=== PATIENT | female | born 1930 | race Caucasian/White ===

== ENCOUNTER 2018-02-02 18:39 | Emergency (ER) | payer MEDICARE ==
[2018-02-02 19:09] VITALS: BP 174/85; PULSE 92; RESP 20; TEMP 98.9
--- NOTE | 2018-02-02 20:25 | ED ---
General Adult HPI - General Chief complaint: Skin/Abscess/Foreign Body Stated complaint: rash Time Seen by Provider: 02/02/18 19:36 Source: patient, family, RN notes reviewed Mode of arrival: ambulatory Limitations: no limitations - History of Present Illness Initial comments: 87-year-old female since to the emergency department for a chief complaint of rash 2 days. Patient states the rash started on her right forearm and has continued to spread up her right forearm and on her left forearm. Patient admits to pulling weeds a few days ago and states it may be related to that. Patient denies changing any detergents. Patient states it is irritating and itching. She states she did try a topical antihistamine but it has not helped. She also has a topical steroid at home that she has used. Patient denies fevers or chills at home. Patient denies any drainage from the wounds.Patient has no other complaints at this time including shortness of breath, chest pain, abdominal pain, nausea or vomiting, headache, or visual changes. - Related Data Home Medications Medication Instructions Recorded Confirmed Aspirin EC [Ecotrin Low Dose] 162 mg PO DAILY 02/02/18 02/02/18 Previous Rx's Medication Instructions Recorded diphenhydrAMINE HCL [Benadryl] 25 mg PO QID PRN #20 tab 02/02/18 predniSONE 40 mg PO DAILY 5 Days tab 02/02/18 Allergies Allergy/AdvReac Type Severity Reaction Status Date / Time simvastatin Allergy Rash/Hives Verified 02/02/18 19:44 potassium chloride AdvReac Unknown Verified 02/02/18 19:44 Review of Systems ROS Statement: Those systems with pertinent positive or pertinent negative responses have been documented in the HPI. ROS Other: All systems not noted in ROS Statement are negative. Past Medical History Past Medical History: No Reported History History of Any Multi-Drug Resistant Organisms: None Reported Past Surgical History: Tonsillectomy Additional Past Surgical History / Comment(s): betty 1988 Past Psychological History: No Psychological Hx Reported Smoking Status: Never smoker Past Alcohol Use History: None Reported Past Drug Use History: None Reported General Exam Limitations: no limitations General appearance: alert, in no apparent distress Head exam: Present: atraumatic, normocephalic, normal inspection Eye exam: Present: normal appearance ENT exam: Present: normal exam, mucous membranes moist Neck exam: Present: normal inspection, full ROM. Absent: tenderness, meningismus, lymphadenopathy Respiratory exam: Present: normal lung sounds bilaterally. Absent: respiratory distress, wheezes, rales, rhonchi, stridor Cardiovascular Exam: Present: regular rate, normal rhythm, normal heart sounds. Absent: systolic murmur, diastolic murmur, rubs, gallop, clicks Skin exam: Present: rash (Patient has erythematous pruritic raised papular lesions on the inner forearms bilaterally. It appears as a contact dermatitis. No cellulitic changes or abscess noted. No signs of infection.) Course Vital Signs 02/02/18 19:05 Temperature 98.9 F Pulse Rate 92 Respiratory 20 Rate Blood Pressure 174/85 O2 Sat by Pulse 97 Oximetry Medical Decision Making - Medical Decision Making 87-year-old female presents to the emergency department for a chief of rash 2 days. Rash is noted on bilateral forearms. Patient was pulling weeds a few days ago and likely has a contact dermatitis. The rash is erythematous papular and pruritic. Patient will be treated with Benadryl as well as a oral steroid. She will continue to apply the topical steroid. She will follow up with dermatology in 1-2 days. She will return to the emergency Department if she has any worsening symptoms or fevers or chills. Disposition Clinical Impression: Contact dermatitis Disposition: HOME SELF-CARE Instructions: Contact Dermatitis (ED) Additional Instructions: Please take medications as directed. Continue to apply your topical steroid. Follow-up with dermatology in 1-2 days. Return to the emergency department if you have any worsening symptoms. Prescriptions: diphenhydrAMINE HCL [Benadryl] 25 mg PO QID PRN #20 tab PRN Reason: Rash predniSONE 40 mg PO DAILY 5 Days tab Is patient prescribed a controlled substance at d/c from ED?: No Referrals: Yousif Rizo MD [STAFF PHYSICIAN] - 1-2 days Time of Disposition: 20:22
== END 2018-02-02 20:40 | disposition home or self-care (01) ==
LOC: EC 18:39
DX: L25.9 Unspecified contact dermatitis, unspecified cause (principal); Z79.82 Long term (current) use of aspirin; Z88.8 Allergy status to other drugs, medicaments and biological substances
CPT/HCPCS: 99282

== ENCOUNTER 2019-07-24 11:27 | Emergency (ER) | payer MEDICARE ==
[2019-07-24 11:38] VITALS: TEMP 97.3
--- NOTE | 2019-07-24 12:24 | ED ---
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 Patient comes in today because since Monday night her blood pressures been elevated. Patient states she's also had intermittent right frontal headache currently the headache has just recently subsided. Patient states she has no chest pain or pressure. Patient just feels as though her heart is pounding a little harder. Patient denies any shortness of breath or difficulty breathing. Patient denies any abdominal pain patient's nausea vomiting diarrhea. Patient's any back pain. Patient denies any swelling to the legs or any calf tenderness. - Related Data Home Medications Medication Instructions Recorded Confirmed Aspirin EC [Ecotrin Low Dose] 162 mg PO DAILY 02/02/18 02/02/18 Previous Rx's Medication Instructions Recorded diphenhydrAMINE HCL [Benadryl] 25 mg PO QID PRN #20 tab 02/02/18 predniSONE 40 mg PO DAILY 5 Days tab 02/02/18 amLODIPine [Norvasc] 5 mg PO DAILY #10 tab 07/24/19 Allergies Allergy/AdvReac Type Severity Reaction Status Date / Time simvastatin Allergy Rash/Hives Verified 02/02/18 19:44 potassium chloride AdvReac Unknown Verified 02/02/18 19:44 Review of Systems ROS Statement: Those systems with pertinent positive or pertinent negative responses have been documented in the HPI. ROS Other: All systems not noted in ROS Statement are negative. Past Medical History Past Medical History: No Reported History Additional Past Medical History / Comment(s): subarachnoid hemmorhage, aneurism History of Any Multi-Drug Resistant Organisms: None Reported Past Surgical History: Tonsillectomy Additional Past Surgical History / Comment(s): anuerysm 1989 Past Psychological History: No Psychological Hx Reported Smoking Status: Never smoker Past Alcohol Use History: None Reported Past Drug Use History: None Reported General Exam - General Exam Comments Initial Comments: GENERAL: Patient is well-developed and well-nourished. Patient is nontoxic and well-hydrated and is in no acute distress. ENT: Neck is soft and supple. No significant lymphadenopathy is noted. Oropharynx is clear. Moist mucous membranes. Neck has full range of motion without eliciting any pain. There is no thyroid enlargement and no masses were felt. EYES: The sclera were anicteric and conjunctiva were pink and moist. Extraocular movements were intact and pupils were equal round and reactive to light. Eyelids were unremarkable. PULMONARY: Unlabored respirations. Good breath sounds bilaterally. No audible rales rhonchi or wheezing was noted. CARDIOVASCULAR: There is a regular rate and rhythm without any murmurs gallops or rubs. Femoral pulses are equal bilaterally ABDOMEN: Soft and nontender with normal bowel sounds. No palpable organomegaly was noted. There is no palpable pulsatile mass. SKIN: Skin is clear with no lesions or rashes and otherwise unremarkable. NEUROLOGIC: Patient is alert and oriented x3. Cranial nerves II through XII are grossly intact. Motor and sensory are also intact. Normal speech, volume and content. Symmetrical smile. Cerebellar exam grossly intact. MUSCULOSKELETAL: Normal extremities with adequate strength and full range of motion. No lower extremity swelling or edema. No calf tenderness. LYMPHATICS: No significant lymphadenopathy is noted PSYCHIATRIC: Normal psychiatric evaluation. Normal interpersonal interactions appears functionally intact in deals appropriately with others. No signs of depression. No signs of anxiety. No delusions. No hallucinations. Limitations: no limitations Course Vital Signs 07/24/19 07/24/19 07/24/19 11:31 12:13 12:16 Temperature 97.3 F L Pulse Rate 91 79 Respiratory 19 18 Rate Blood Pressure 174/80 182/85 163/80 O2 Sat by Pulse 98 97 Oximetry 07/24/19 13:42 Temperature Pulse Rate 88 Respiratory 16 Rate Blood Pressure 137/92 O2 Sat by Pulse 98 Oximetry Medical Decision Making - Medical Decision Making Chest x-ray showed no acute abnormality. CT of the brain shows no acute abnormality. Patient received 5 mg of hydralazine emergency department. Patient will be sent home with in antihypertensive and follow up with Dr. Flores - Lab Data Result diagrams: 07/24/19 12:10 07/24/19 12:10 Lab Results 07/24/19 07/24/19 07/24/19 Range/Units 12:10 12:10 12:10 WBC 5.8 (3.8-10.6) k/uL RBC 4.76 (3.80-5.40) m/uL Hgb 11.6 (11.4-16.0) gm/dL Hct 38.5 (34.0-46.0) % MCV 80.9 (80.0-100.0) fL MCH 24.4 L (25.0-35.0) pg MCHC 30.2 L (31.0-37.0) g/dL RDW 17.4 H (11.5-15.5) % Plt Count 380 (150-450) k/uL Neutrophils % 62 % Lymphocytes % 23 % Monocytes % 7 % Eosinophils % 4 % Basophils % 1 % Neutrophils # 3.6 (1.3-7.7) k/uL Lymphocytes # 1.3 (1.0-4.8) k/uL Monocytes # 0.4 (0-1.0) k/uL Eosinophils # 0.2 (0-0.7) k/uL Basophils # 0.1 (0-0.2) k/uL Hypochromasia Marked Anisocytosis Slight Microcytosis Slight PT 9.7 (9.0-12.0) sec INR 0.9 (<1.2) APTT 22.2 (22.0-30.0) sec Sodium 140 (137-145) mmol/L Potassium 4.7 (3.5-5.1) mmol/L Chloride 108 H (98-107) mmol/L Carbon Dioxide 25 (22-30) mmol/L Anion Gap 7 mmol/L BUN 15 (7-17) mg/dL Creatinine 1.05 H (0.52-1.04) mg/dL Est GFR (CKD-EPI)AfAm 55 (>60 ml/min/1.73 sqM) Est GFR (CKD-EPI)NonAf 48 (>60 ml/min/1.73 sqM) Glucose 96 (74-99) mg/dL Calcium 10.6 H (8.4-10.2) mg/dL Magnesium 2.2 (1.6-2.3) mg/dL Total Bilirubin 0.4 (0.2-1.3) mg/dL AST 23 (14-36) U/L ALT 10 (4-34) U/L Alkaline Phosphatase 66 (38-126) U/L Troponin I (0.000-0.034) ng/mL Total Protein 7.3 (6.3-8.2) g/dL Albumin 4.3 (3.5-5.0) g/dL 07/24/19 Range/Units 12:10 WBC (3.8-10.6) k/uL RBC (3.80-5.40) m/uL Hgb (11.4-16.0) gm/dL Hct (34.0-46.0) % MCV (80.0-100.0) fL MCH (25.0-35.0) pg MCHC (31.0-37.0) g/dL RDW (11.5-15.5) % Plt Count (150-450) k/uL Neutrophils % % Lymphocytes % % Monocytes % % Eosinophils % % Basophils % % Neutrophils # (1.3-7.7) k/uL Lymphocytes # (1.0-4.8) k/uL Monocytes # (0-1.0) k/uL Eosinophils # (0-0.7) k/uL Basophils # (0-0.2) k/uL Hypochromasia Anisocytosis Microcytosis PT (9.0-12.0) sec INR (<1.2) APTT (22.0-30.0) sec Sodium (137-145) mmol/L Potassium (3.5-5.1) mmol/L Chloride (98-107) mmol/L Carbon Dioxide (22-30) mmol/L Anion Gap mmol/L BUN (7-17) mg/dL Creatinine (0.52-1.04) mg/dL Est GFR (CKD-EPI)AfAm (>60 ml/min/1.73 sqM) Est GFR (CKD-EPI)NonAf (>60 ml/min/1.73 sqM) Glucose (74-99) mg/dL Calcium (8.4-10.2) mg/dL Magnesium (1.6-2.3) mg/dL Total Bilirubin (0.2-1.3) mg/dL AST (14-36) U/L ALT (4-34) U/L Alkaline Phosphatase (38-126) U/L Troponin I <0.012 (0.000-0.034) ng/mL Total Protein (6.3-8.2) g/dL Albumin (3.5-5.0) g/dL Disposition Clinical Impression: Hypertensive urgency Disposition: HOME SELF-CARE Condition: Good Instructions (If sedation given, give patient instructions): Hypertension (ED) Prescriptions: amLODIPine [Norvasc] 5 mg PO DAILY #10 tab Is patient prescribed a controlled substance at d/c from ED?: No Referrals: None,Stated [Primary Care Provider] - 1-2 days Time of Disposition: 13:49
[2019-07-24 12:41] LABS: Anisocytosis Slight; Basophils # (A) 0.1 k/uL (0-0.2); Basophils % (A) 1 %; Eosinophils # (A) 0.2 k/uL (0-0.7); Eosinophils % (A) 4 %; HCT 38.5 % (34.0-46.0); HGB 11.6 gm/dL (11.4-16.0); Hypochromasia Marked; Lymphocytes # (A) 1.3 k/uL (1.0-4.8); Lymphocytes % (A) 23 %; MCH 24.4 pg (25.0-35.0); MCHC 30.2 g/dL (31.0-37.0); MCV 80.9 fL (80.0-100.0); Mean Platelet Volume 7.6; Microcytosis Slight; Monocytes # (A) 0.4 k/uL (0-1.0); Monocytes % (A) 7 %; Neutrophils # (A) 3.6 k/uL (1.3-7.7); Neutrophils % (A) 62 %; Platelet Count 380 k/uL (150-450); RBC 4.76 m/uL (3.80-5.40); RDW 17.4 % (11.5-15.5); WBC 5.8 k/uL (3.8-10.6)
[2019-07-24 12:46] LABS: INR 0.9 (<1.2); Partial Thromboplastin Time 22.2 sec (22.0-30.0); Prothrombin Time 9.7 sec (9.0-12.0)
[2019-07-24 12:48] LABS: Albumin 4.3 g/dL (3.5-5.0); Calcium 10.6 mg/dL (8.4-10.2); Magnesium 2.2 mg/dL (1.6-2.3); Potassium 4.7 mmol/L (3.5-5.1); Total Bilirubin 0.4 mg/dL (0.2-1.3); Total Protein 7.3 g/dL (6.3-8.2)
--- NOTE | 2019-07-24 12:54 | XR ---
EXAMINATION TYPE: XR chest 2V DATE OF EXAM: 07/24/2019 COMPARISON: None HISTORY: 88-year-old female with chest pain TECHNIQUE: PA and lateral views FINDINGS: Heart upper limits of normal in size. Atelectatic calcifications throughout the thoracic aorta. Mild hyperinflation. No consolidation or pleural effusion. Eventration medial aspect of the right hemidiap hragm. IMPRESSION: Hyperinflation may relate to depth of inspiration or underlying emphysema. Clinically correlate. No d efinite acute process.
--- NOTE | 2019-07-24 12:54 | CT ---
EXAMINATION TYPE: CT brain wo con DATE OF EXAM: 07/24/2019 COMPARISON: None HISTORY: RIZO, elevated BP, history of brain aneurysm and subarachnoid bleed CT DLP: 1099.4 mGycm Automated exposure control for dose reduction was used. FINDINGS: Extensive postsurgical changes are noted. Findings suggest previous aneurysm clipping which results i n severe artifact. Portions of the brain results in nondiagnostic assessment of these levels. 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 Grossly no midline shift or acute intracranial hemorrhage is seen. Mild generalized degenerative garland ges are seen and there is evidence of encephalomalacia involving the inferior right frontal lobe. Low -attenuation the white matter is nonspecific but most typical remote microvascular ischemia. Changes of chronic sinusitis noted. IMPRESSION: EXTENSIVE POSTSURGICAL CHANGE AND EVIDENCE OF REMOTE ISCHEMIC CHANGE WITH NO DIAGNOSTIC EVIDENCE OF A CUTE HEMORRHAGE, MASS EFFECT OR MIDLINE SHIFT.
[2019-07-24] MEDS ORDERED: hydrALAZINE HCL 20 MG/ML 1 ML VIAL IVP STA (13:21)
[2019-07-24 13:42] VITALS: RESP 16
[2019-07-24 14:48] VITALS: BP 139/90; PULSE 75
== END 2019-07-24 14:00 | disposition home or self-care (01) ==
LOC: EC 11:27
DX: I16.0 Hypertensive urgency (principal); Z88.8 Allergy status to other drugs, medicaments and biological substances; Z79.82 Long term (current) use of aspirin; Z86.69 Personal history of other diseases of the nervous system and sense organs; Z98.890 Other specified postprocedural states
CPT/HCPCS: 36415; 93005; 80053; 83735; 84484; 85025; 85610; 85730; 71046; 70450; 99285; 96374; J0360

== ENCOUNTER → 2020-05-11 | Outpatient (CLI) | payer MEDICARE ==
--- NOTE | 2020-05-11 21:31 | US ---
EXAMINATION TYPE: US venous doppler duplex LE LT DATE OF EXAM: 05/11/2020 4:42 PM COMPARISON: NONE CLINICAL HISTORY: LLE; M79.662; M25.572. Pain, burning, and itching left lower leg SIDE PERFORMED: left TECHNIQUE: The lower extremity deep venous system is examined utilizing real time linear array sonog yaneth with graded compression, doppler sonography and color-flow sonography. VESSELS IMAGED: External Iliac Vein (EIV) Common Femoral Vein Deep Femoral Vein Greater Saphenous Vein * Femoral Vein Popliteal Vein Small Saphenous Vein * Proximal Calf Veins (* superficial vessels) Left Leg: no evidence of DVT as visualized Grayscale, color doppler, spectral doppler imaging performed of the deep veins of the left lower extr emity. There is normal flow, compressibility, vascular waveforms. IMPRESSION: No ultrasound evidence for acute DVT in the left lower extremity.
== END | disposition home or self-care (01) ==
LOC: RADUSWWP 16:24
PROVIDERS: ATTEND Orthopaedic Surgery Sports Medicine
DX: M79.662 Pain in left lower leg (principal); M25.572 Pain in left ankle and joints of left foot; I80.9 Phlebitis and thrombophlebitis of unspecified site